=== PATIENT | male | born 1985 | race Caucasian/White ===

== ENCOUNTER 2016-05-06 07:30 | Outpatient (RCR) | payer BC | END 2016-06-18 09:43 | disposition still patient (30) | LOC: WSPT 07:30 | DX: M21.6X1 Other acquired deformities of right foot (principal) ==

== ENCOUNTER → 2016-06-10 | Outpatient (REF) | LOC: WSOH 13:43 | DX: Z02.89 Encounter for other administrative examinations (principal) ==

== ENCOUNTER 2018-05-13 12:00 | Outpatient (RCR) | payer OTHER | END 2018-08-11 | disposition still patient (30) | LOC: WSOH | DX: S61.230A Puncture wound without foreign body of right index finger without damage to nail, initial encounter (principal); Z77.21 Contact with and (suspected) exposure to potentially hazardous body fluids; W46.0XXA Contact with hypodermic needle, initial encounter; Y93.F9 Activity, other caregiving; Y92.531 Health care provider office as the place of occurrence of the external cause; Y99.0 Civilian activity done for income or pay ==